=== PATIENT | male | born 1990 | race Hispanic/Latino ===

== ENCOUNTER 2018-07-29 13:40 | Emergency (ER) | payer SELFPAY ==
[2018-07-29] MEDS ORDERED: NACL 0.9% 1000 ML 1,000 ML IV ONE (16:48)
--- NOTE | 2018-07-29 16:49 | Emergency Department Report ---
ED General Adult HPI - General Chief complaint: Medical Clearance Stated complaint: HYPOTENSION Time Seen by Provider: 07/29/18 16:41 Source: patient, EMS (ems notes not available at time of chart dictation), RN notes reviewed, old records reviewed Mode of arrival: Stretcher Limitations: No Limitations - History of Present Illness Initial comments: This is a 27-year-old gentleman, not known to this provider previously, who is sent to the emergency room by a local detox facility for medical clearance. His physician of record is Dr. Jabari Michael. The patient is apparently in detox for polysubstance use. Medications include Ativan, as needed, clonidine, Seroquel, Vistaril. He is sent to the emergency room for medical clearance. Apparently had an episode of hypotension. Apparently blood pressure was in the 70s. He is reportedly given IV fluids by EMS prior to my evaluation. Head prehospital laboratory studies performed on 07/17/2018, which demonstrated an unremarkable CBC. The patient currently denies all complaints. He currently denies headache, neck pain, chest pain, abdominal pain, shortness of breath, nausea, vomiting, diarr hea. He is asking to drink, and he is asking to go home. -: Sudden Improves with: none Worsens with: none Associated Symptoms: denies other symptoms - Related Data Previous Rx's Medication Instructions Recorded Last Taken Type Ondansetron [Zofran Odt] 4 mg PO Q8HR PRN #20 tab.rapdis 07/29/18 Unknown Rx Allergies Allergy/AdvReac Type Severity Reaction Status Date / Time No Known Allergies Allergy Unverified 07/29/18 13:48 ED Review of Systems ROS: Stated complaint: HYPOTENSION Other details as noted in HPI Constitutional: denies: fever Eyes: denies: eye discharge ENT: denies: epistaxis Respiratory: denies: cough Cardiovascular: denies: chest pain Gastrointestinal: denies: abdominal pain Genitourinary: denies: dysuria Musculoskeletal: denies: back pain Skin: denies: lesions Neurological: denies: weakness Psychiatric: denies: anxiety ED Past Medical Hx - Past Medical History Previous Medical History?: Yes Hx Psychiatric Treatment: Yes (detox for cocaine/marijuana use.) - Surgical History Past Surgical History?: No - Social History Smoking Status: Former Smoker Substance Use Type: Alcohol, Cocaine, Marijuana - Medications Home Medications: Home Medications Medication Instructions Recorded Confirmed Last Taken Type Ondansetron [Zofran Odt] 4 mg PO Q8HR PRN #20 tab.rapdis 07/29/18 Unknown Rx ED Physical Exam - General Limitations: No Limitations General appearance: alert, in no apparent distress - Head Head exam: Present: atraumatic, normocephalic - Eye Eye exam: Present: normal appearance, EOMI. Absent: nystagmus - ENT ENT exam: Present: normal exam, normal orophraynx, mucous membranes moist, normal external ear exam - Neck Neck exam: Present: normal inspection, full ROM. Absent: tenderness, meningismus - Respiratory Respiratory exam: Present: normal lung sounds bilaterally. Absent: respiratory distress - Cardiovascular Cardiovascular Exam: Present: regular rate, normal rhythm, normal heart sounds. Absent: bradycardia, tachycardia, irregular rhythm, systolic murmur, diastolic murmur, rubs, gallop - GI/Abdominal GI/Abdominal exam: Present: soft. Absent: distended, tenderness, guarding, rebound, rigid, pulsatile mass - Rectal Rectal exam: Present: deferred - Extremities Exam Extremities exam: Present: normal inspection, full ROM, other (2+ pulses noted in the bilateral upper, lower extremities. Compartments soft. No long bony tenderness. The pelvis is stable.). Absent: tenderness, pedal edema, joint swelling, calf tenderness - Back Exam Back exam: Present: normal inspection, full ROM. Absent: tenderness, CVA tende rness (R), CVA tenderness (L), paraspinal tenderness, vertebral tenderness - Neurological Exam Neurological exam: Present: alert, oriented X3, other (Extraocular movements intact. Tongue midline. No facial droop. Facial sensation intact to light touch in the V1, V2, V3 distribution bilaterally. 5 and 5 strength in 4 extremities.. Sensation is intact to light touch in 4 extremities.). Absent: motor sensory deficit - Psychiatric Psychiatric exam: Present: flat affect - Skin Skin exam: Present: warm, dry, intact, normal color. Absent: rash ED Course Vital Signs 07/29/18 07/29/18 07/29/18 16:29 16:35 17:01 Temperature 98.3 F Pulse Rate 72 Blood Pressure 109/61 109/61 104/55 O2 Sat by Pulse 100 Oximetry ED Medical Decision Making - Lab Data Result diagrams: 07/29/18 17:26 Vital Signs 07/29/18 07/29/18 07/29/18 16:29 16:35 17:01 Temperature 98.3 F Pulse Rate 72 Blood Pressure 109/61 109/61 104/55 O2 Sat by Pulse 100 Oximetry Respiratory rate 14-16 breaths per minute Lab Results 07/29/18 07/29/18 07/29/18 Range/Units 17:26 17:26 17:26 Sodium 144 (137-145) mmol/L Potassium 4.2 (3.6-5.0) mmol/L Chloride 109.9 H (98-107) mmol/L Carbon Dioxide 25 (22-30) mmol/L Anion Gap 13 mmol/L BUN 6 L (9-20) mg/dL Creatinine 0.8 (0.8-1.5) mg/dL Estimated GFR > 60 ml/min BUN/Creatinine Ratio 8 % Glucose 118 H (75-100) mg/dL Calcium 8.6 (8.4-10.2) mg/dL Magnesium 2.10 (1.7-2.3) mg/dL Total Creatine Kinase 108 (55-170) units/L Salicylates < 0.3 L (2.8-20.0) mg/dL Acetaminophen < 5.0 L (10.0-30.0) ug/mL - EKG Data -: EKG Interpreted by Mi EKG shows normal: sinus rhythm Rate: normal - EKG Data When compared to previous EKG there are: previous EKG unavailable 07/29/18 18:36 EKG shows a sinus rhythm, 68 bpm, CA interval prolonged, QTC within normal limits, high left ventricular voltage, not having chest pain, this is an abnormal EKG. No prior for comparison. Nonspecific ST elevation, likely early repolarization, this is an abnormal EKG. This EKG is not consistent with ST elevation myocardial infarction - Medical Decision Making Differential diagnosis, including but not limited to: Resolved hypotension, dehydration, electrolyte derangement, medical clearance, equipment malfunction, medication side effects Assessment and plan: 27-year-old gentleman, currently in detox for polysubstance use, clinically sober at this time, with a Karin Coma Scale of 15, with an NIH score of 0. He is on multiple medications which may cause hypotension, including clonidine, Seroquel, Vistaril. His screening laboratory studies are unremarkable, his screening EKG showed nonspecific abnormalities, patient resting comfortably, in stretcher, and in no acute distress. We will recommend that clonidine, Seroquel, Vistaril be held, the patient is observed in the emergency room for a few hours. Clinical decompensation, and he is medically stable for discharge at this point in time. Critical care attestation.: If time is entered above; I have spent that time in minutes in the direct care of this critically ill patient, excluding procedure time. ED Disposition Clinical Impression: History of hypotension, General medical exam Disposition: TO HOME OR SELFCARE Is pt being admited?: No Does the pt Need Aspirin: No Condition: Stable Additional Instructions: I recommend that medications that cause hypotension be held, including clonidine, Vistaril, Seroquel. Advance diet as tolerated. EKG demonstrated nonspecific nonemergent abnormal findings. They should be followed up by a primary care doctor, her computer consultant within the next 7-10 days. Please return to the emergency room right away with it, worsened or different symptoms, or symptoms not present on the initial ER evaluation. Referrals: [facility] [Primary Care Provider] - 3-5 Days [facility] [Provider Group] - 3-5 Days [facility] [Provider Group] - 3-5 Days
[2018-07-29 18:09] LABS: BUN/Creatinine Ratio 8; Blood Urea Nitrogen 6 mg/dL (9-20); Calcium 8.6 mg/dL (8.4-10.2); Hemolysis Index 8
[2018-07-29 18:45] VITALS: BP 122/69
== END 2018-07-29 18:45 | disposition home or self-care (01) ==
LOC: ED 13:40
DX: I95.9 Hypotension, unspecified (principal); F12.10 Cannabis abuse, uncomplicated; F14.10 Cocaine abuse, uncomplicated; Z87.891 Personal history of nicotine dependence
CPT/HCPCS: 36415; 80048; 82550; 83735; 93005; 93010; 99284; G0480; J7030; 80320